=== PATIENT | female | born 1990 | race African-American/Black ===

== ENCOUNTER 2023-12-27 10:54 | Emergency (ER) | payer OTHER, BC ==
[~2023-12-27] VITALS: Ht 149.9 cm; Wt 83.0 kg
[2023-12-27 11:03] VITALS: TEMP 99.2
[2023-12-27] MEDS: ketorolac trometh 15mg/ml vial 15 MG/ML ML IM ONE (13:03)
[2023-12-27 13:37] VITALS: BP 119/82; PULSE 76; RESP 16; O2SAT 100
== END 2023-12-27 13:36 | disposition home or self-care (01) ==
LOC: ER 10:55
DX: R51.9 Headache, unspecified (principal); H92.02 Otalgia, left ear; M54.2 Cervicalgia; M54.50 Low back pain, unspecified; V98.8XXA Other specified transport accidents, initial encounter; Y93.89 Activity, other specified; Y92.89 Other specified places as the place of occurrence of the external cause; Y99.8 Other external cause status
CPT/HCPCS: 72040; 96372; 99283; J1885